=== PATIENT | female | born 1975 | race Hispanic/Latino ===

== ENCOUNTER 2016-12-31 03:40 | Emergency (ER) | payer OTHER ==
[~2016-12-31] VITALS: Ht 154.9 cm; Wt 58.3 kg
[2016-12-31 03:48] VITALS: BP 116/74
[2016-12-31 04:23] LABS: EOSINOPHIL (%) 1.6 % (0-5); EOSINOPHIL COUNT 0.1 K/uL (0-0.3); HEMATOCRIT 37.5 % (36.0-46.0); IMMATURE GRANULOCYTE (%) 0.5 % (0.0-0.7); INSTRUMENT ABS NEUTROPHIL CT 5.3 K/uL; LYMPHOCYTE COUNT 2.3 K/uL (1.0-2.8); MCH 31.7 PG (29.0-34.0); MCHC 33.3 G/DL (30.0-36.0); MCV 95.2 FL (83-99); MEAN PLAT.VOLUME 9.6 uM^3 (9.5-12.4); MONOCYTE (%) 5.7 % (3-12); MONOCYTE COUNT 0.5 K/uL (0-0.8); NEUTROPHIL (%) 64.1 % (45-76); NEUTROPHIL COUNT 5.3 K/uL (1.8-6.4); PLATELET COUNT 315 K/uL (156-360); RBC DIS.WIDTH-SD 42.1 % (39-53); RED BLOOD COUNT 3.94 M/uL (3.80-5.20); WHITE BLOOD COUNT 8.2 K/uL (4.1-10.2)
[2016-12-31 04:32] LABS: AMYLASE 140 IU/L (1-118); CHLORIDE 111 mEq/L (99-109); POTASSIUM 3.6 mEq/L (3.7-5.4); SODIUM 143 mEq/L (136-147)
[2016-12-31 04:34] LABS: GLUCOSE 109 mg/dL (70-99)
[2016-12-31 04:36] LABS: ANION GAP 9 MEQ/L (2-14)
[2016-12-31 04:37] LABS: SERUM ETHYL ALCOHOL 144 mg/dL
[2016-12-31 04:39] LABS: UREA NITROGEN (BUN) 12 mg/dL (9-23)
[2016-12-31 04:40] LABS: GFR ESTIMATE (CALCULATED) > 59 mL/min/
[2016-12-31 04:41] LABS: LIPASE 19 U/L (1.0-51.0)
[2016-12-31 04:47] LABS: QUANTITATIVE HCG < 4.0 MIU/ML
== END 2016-12-31 05:44 | disposition home or self-care (01) ==
LOC: EME 03:40
PROVIDERS: Emergency Medicine
DX: S30.811A Abrasion of abdominal wall, initial encounter (principal); V49.9XXA Car occupant (driver) (passenger) injured in unspecified traffic accident, initial encounter; F10.129 Alcohol abuse with intoxication, unspecified; Y90.6 Blood alcohol level of 120-199 mg/100 ml; R07.81 Pleurodynia; R11.0 Nausea; F17.200 Nicotine dependence, unspecified, uncomplicated
CPT/HCPCS: 74177; 80048; 82150; 83690; 84702; 85025; 99281; 99284; G0480; J2405; J7030